=== PATIENT | female | born 2005 | race Caucasian/White ===

== ENCOUNTER → 2024-11-08 | Outpatient (CLI) | payer BC, SELFPAY ==
[2024-11-08 09:36] LABS: Absolute Lymphocyte Count 1.91 X10^3/uL (0.83-4.51); Absolute Neutrophil Count 2.5 X10^3/uL (2.0-7.7); Basophil# 0.02 X10^3/uL; Basophil% 0.4 % (0-1); Eosinophil# 0.06 X10^3/uL; Eosinophils% 1.3 % (0-5); Hematocrit 40.3 % (37-47); Hemoglobin 13.2 g/dL (12.0-15.0); Lymphocyte # 1.91 X10^3/ul (0.83-4.51); Lymphocyte % 39.8 % (19-41); Mean Corp Hgb Conc 32.8 g/dL (32-36); Mean Corpuscular Hgb 29.1 pg (27.0-32.0); Mean Corpuscular Volume 88.8 fL (81-99); Mean Platelet Vol. 8.9 fl (6.2-12.0); Monocyte# 0.27 X10^3/uL; Monocyte% 5.6 % (0-10); NRBC Flagged by Analyzer 0 % (0-5); Neutrophil # 2.53 X10^3/uL (2.7-7.7); Neutrophil % 52.7 % (47-70); Platelet Count 280 K/mm3 (150-450); RBC Distribution Width CV 12.2 % (11.6-14.6); RBC Distribution Width SD 39.9 fl (35.1-43.9); Red Blood Count 4.54 M/mm3 (4.2-5.4); White Blood Count 4.8 K/mm3 (4.4-11.0)
[2024-11-08 10:16] LABS: Internal QC Validated? YES +Cl - CLEAR BKGD; Pregnancy, Serum, hCG Quali. NEGATIVE Negative
[2024-11-08 10:37] LABS: Anion Gap 7 (5-15); BUN 13 mg/dL (7-18); BUN/Creat Ratio 16.1 RATIO (10-20); Calcium,Total 9.2 mg/dL (8.5-10.1); Chloride 108 mmol/L (98-107); Creatinine, Serum 0.81 mg/dL (0.55-1.02); EST Glomerular Filtration Rate 95 mL/min (>60); Est Glom Filt Rate - Afr Amer 115 mL/min (>60); Glucose 88 mg/dL (74-106); Sodium Level 139 mmol/L (136-145)
--- NOTE | 2024-11-08 15:50 | PCM.TILTTABL ---
Staff Staff: Isabell Ramos and Shanna Rolle Summary Pre Test Resting HR: 59 Pre Test Resting BP: 108/77 Minimum Test HR: 59 Maximum Test HR: 99 Minimum Test BP: 101/69 Maximum Test BP: 119/87 Reason for Test Termination: Reached Maximum Test Time Physician Tilt Table Report Patient's Physicians Primary Care Physician: aLura Pate Indications/Diagnosis: Syncope Procedure Comments: Patient was brought to the noninvasive lab in the postabsorptive nonsedated state. Informed consent was obtained. Initial heart rate and blood pressure were obtained and EKG was also obtained. Resting heart rate was noted to be 72 bpm with a blood pressure 114/72 mmHg. The patient was then placed in the 70 degree head upright tilt position for 20 minutes. Continuous EKG heart rate and blood pressures were obtained. The patient appeared to maintain stable vitals throughout with no significant hemodynamic variations. The patient was then placed in the recumbent position and administered 0.4 mg of sublingual nitroglycerin and then put back in the 70 degree head upright tilt position. Heart rate initially 67 bpm gabo to 89 bpm with a blood pressure of 119/87 going 115/75. No significant symptomatology was noted. The patient was then placed back in the recumbent position and recovered. Summary: Negative -70 degree head upright tilt position.
[2024-11-08 15:53] VITALS: BP 101/69; BP 108/77; BP 119/87
== END | disposition home or self-care (01) ==
LOC: CVS 09:14
PROVIDERS: PCP Internal Medicine; Referring Provider Internal Medicine; Visit Provider Internal Medicine
DX: R55 Syncope and collapse (principal)
CPT/HCPCS: 36415; 80048; 84703; 85025; 93660; A4216

== ENCOUNTER → 2024-11-14 | Outpatient (CLI) | payer BC, SELFPAY ==
[2024-11-14 12:25] LABS: Hematocrit 40.3 % (37-47); Hemoglobin 13.1 g/dL (12.0-15.0); Mean Corp Hgb Conc 32.5 g/dL (32-36); Mean Corpuscular Hgb 28.9 pg (27.0-32.0); Mean Platelet Vol. 9.4 fl (6.2-12.0); Platelet Count 287 K/mm3 (150-450); RBC Distribution Width CV 12.2 % (11.6-14.6); RBC Distribution Width SD 39.9 fl (35.1-43.9); Red Blood Count 4.53 M/mm3 (4.2-5.4); White Blood Count 7.1 K/mm3 (4.4-11.0)
[2024-11-14 12:44] LABS: ALB/GLOB Ratio 1.2 RATIO (0.9-2.4); AST(SGOT) 19 U/L (15-37); Alanine Aminotransfer ALT/SGPT 23 U/L (13-56); Albumin, Serum 4.1 g/dL (3.2-5.0); Alkaline Phosphatase 57 U/L (45-117); Anion Gap 4 (5-15); BUN 11 mg/dL (7-18); BUN/Creat Ratio 14.6 RATIO (10-20); Calcium,Total 9.4 mg/dL (8.5-10.1); Chloride 107 mmol/L (98-107); Creatinine, Serum 0.76 mg/dL (0.55-1.02); EST Glomerular Filtration Rate 102 mL/min (>60); Est Glom Filt Rate - Afr Amer 123 mL/min (>60); Globulin 3.4 g/dL (2.2-4.2); Glucose 91 mg/dL (74-106); Magnesium 2.3 mg/dL (1.6-2.6); Potassium 4.1 mmol/L (3.5-5.1); Protein, Total 7.5 g/dL (6.4-8.2); Sodium Level 138 mmol/L (136-145)
== END | disposition home or self-care (01) ==
PROVIDERS: PCP Internal Medicine; Referring Provider Psychiatry & Neurology Neurology; Visit Provider Psychiatry & Neurology Neurology
DX: R55 Syncope and collapse (principal); G43.009 Migraine without aura, not intractable, without status migrainosus; G90.A Postural orthostatic tachycardia syndrome [POTS]
CPT/HCPCS: 36415; 80053; 83735; 84443; 85027

== ENCOUNTER → 2024-11-29 | Outpatient (CLI) | payer BC, SELFPAY | END | disposition home or self-care (01) | LOC: PSN 08:17 | PROVIDERS: PCP Pediatrics; Referring Provider Psychiatry & Neurology Neurology; Visit Provider Psychiatry & Neurology Neurology | DX: G90.A Postural orthostatic tachycardia syndrome [POTS] (principal); R55 Syncope and collapse | CPT/HCPCS: 95819 ==

== ENCOUNTER → 2024-12-20 | Outpatient (CLI) | payer BC, SELFPAY ==
--- NOTE | 2024-12-20 15:37 | MRI_ITS ---
PROCEDURE: BRAIN W/WO CONTRAST REASON FOR EXAM: Lightheadedness. TECHNIQUE: Multiplanar, multisequence MRI of the brain with and without intravenous gadolinium-based contrast. CONTRAST: 13 cc Clariscan. COMPARISON: None. FINDINGS: Brain volume is age appropriate. The ventricles are not effaced or dilated. No midline shift, mass effect, or extra-axial fluid collections are identified. No abnormal brain parenchymal signal is seen with FLAIR imaging. No diffusion restriction is identified on diffusion-weighted imaging to suggest acute/subacute ischemic changes. No acute intracranial hemorrhage or acute territorial infarction is seen. No abnormal enhancement is identified. Corpus callosum, optic chiasm, suprasellar cistern, and cerebellar tonsils are within normal range. Major vascular flow voids are present. Bilateral orbits are intact. Nasal septum is deviated to the right. 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 MRI/Brain W/WO Contrast IMPRESSION: No acute intracranial process or abnormal enhancement. [facility]
== END | disposition home or self-care (01) ==
LOC: MRI 15:36
PROVIDERS: PCP Internal Medicine; Referring Provider Psychiatry & Neurology Neurology; Visit Provider Psychiatry & Neurology Neurology
DX: G90.A Postural orthostatic tachycardia syndrome [POTS] (principal); G43.009 Migraine without aura, not intractable, without status migrainosus
CPT/HCPCS: 70553; A9575